=== PATIENT | male | born 1935 | race Caucasian/White ===

== ENCOUNTER 2020-04-06 09:42 | Emergency (ER) | payer MEDICARE ==
[~2020-04-06] VITALS: Ht 180.3 cm; Wt 72.1 kg
[~2020-04-06 09:42] MED LIST: CALCIUM 600 +1 EAC3 PO; FLOMAX0.4 MG PO; LEVOTHYROXINE75 MCG PO; LISINOPRIL10 MG PO; MULTIVITAMINS1 EAC7 PO; NORCO 5-325 TA1 EACH PO; PROMETHAZINE HC25 M1 PO; PROSTATE MED
[2020-04-06] MEDS ORDERED: DILTIAZEM 24HR180 M1 PO (14:06)
--- NOTE | 2020-04-06 17:55 | EKG ---
[facility] [address] [facility] [place] [address] Signed Supraventricular tachycardia Marked ST abnormality, possible inferior subendocardial injury Abnormal ECG When compared with ECG of 20-AUG-2016 13:16, Vent. rate has increased BY [address] now depressed in Inferior leads ST now depressed in Lateral leads T wave inversion more evident in Inferior leads Confirmed by LINDA ANNE MD ([id number] on 04/06/2020 5:54:40 PM Electronically Signed By: LINDA ANNE MD 04/06/20 1755 PATIENT NAME: GHASSAN WOODS Electrocardiogram DATE OF : 37 PHYSICIAN: LINDA ANNE MD REPORT #: [id number] REPORT IS CONFIDENTIAL AND NOT TO BE RELEASED WITHOUT AUTHORIZATION
--- NOTE | 2020-04-06 17:55 | EKG ---
[facility] [address] [facility] [place] [address] Signed Sinus tachycardia with occasional premature ventricular complexes Otherwise normal ECG When compared with ECG of 06-APR-2020 09:51, (Unconfirmed) premature ventricular complexes are now present ST no longer depressed in Inferior leads ST no longer depressed in Lateral leads T wave inversion no longer evident in Inferior leads Confirmed by LINDA ANNE MD ([id number] on 04/06/2020 5:54:57 PM Electronically Signed By: LINDA ANNE MD 04/06/20 1755 PATIENT NAME: GHASSAN WOODS Electrocardiogram DATE OF : 37 PHYSICIAN: LINDA ANNE MD REPORT #: [id number] REPORT IS CONFIDENTIAL AND NOT TO BE RELEASED WITHOUT AUTHORIZATION
== END 2020-04-06 14:22 | disposition home or self-care (01) ==
LOC: ED 09:42
DX: R00.0 Tachycardia, unspecified (principal); E03.9 Hypothyroidism, unspecified; I10 Essential (primary) hypertension; Z79.899 Other long term (current) drug therapy
CPT/HCPCS: 0297T; 0298T; 71045; 80053; 83880; 84443; 84484; 85025; 93005; 93010; 96374; 96376; 99285-25

== ENCOUNTER 2022-04-05 10:23 | Emergency (ER) | payer OTHER, MEDICARE ==
[~2022-04-05 10:23] MED LIST changes: +DILTIAZEM 24HR180 M1 PO; +METOPROLOL SUCC25 MG PO
[2022-04-05] MEDS ORDERED: HYDROCODON-ACE1 EA10 PO (16:35)
== END 2022-04-05 17:10 | disposition home or self-care (01) ==
LOC: ED 10:23
DX: S32.592A Other specified fracture of left pubis, initial encounter for closed fracture (principal); S43.402A Unspecified sprain of left shoulder joint, initial encounter; W11.XXXA Fall on and from ladder, initial encounter; E03.9 Hypothyroidism, unspecified; I10 Essential (primary) hypertension; Z88.8 Allergy status to other drugs, medicaments and biological substances; Z79.899 Other long term (current) drug therapy
CPT/HCPCS: 36415; 70450; 71260; 72125; 73030; 74177; 80053; 82150; 82553; 83605; 83690; 85025; 86850; 86900; 86901; 96375; 99284-25; G0480; J1170; J2405; Q9967